=== PATIENT | male | born 1950 | race Caucasian/White ===

== ENCOUNTER → 2021-02-27 14:52 | Outpatient (CLI) | payer MEDICARE, OTHER, SELFPAY ==
--- NOTE | 2021-02-27 15:02 | DI.RAD.S_ITS ---
PROCEDURE: XR SHOULDER RT MIN 2V INDICATIONS: RT SHOULDER PAIN TECHNIQUE: Three views of the shoulder were acquired. COMPARISON: None. FINDINGS: Bones: No fractures or dislocations. Degenerative joint space loss, hypertrophic spurring, and dystrophic calcification cranial to the acromioclavicular joint. No suspicious bony lesions. Visualized ribs appear intact. Soft tissues: No suspicious soft tissue calcifications. 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 Dictated by: Liliane Bunch M.D. on 02/27/2021 at 17:11 Approved by: Liliane Bunch M.D. on 02/27/2021 at 17:11
== END ==
PROVIDERS: PCP Internal Medicine; Referring Provider Internal Medicine; Visit Provider Internal Medicine
DX: M25.511 Pain in right shoulder (principal); M19.011 Primary osteoarthritis, right shoulder
CPT/HCPCS: 73030